=== PATIENT | female | born 1995 ===

== ENCOUNTER 2018-06-22 22:58 | Emergency (ER) | payer OTHER ==
[2018-06-22] MEDS ORDERED: KETOROLAC TROMETHAMINE 30 MG/ML SOL IV ONE (23:18)
[2018-06-22] MEDS ORDERED: KETOROLAC TROMETHAMINE 30 MG/ML SOL ONE (23:37)
[2018-06-22 23:54] LABS: BASOPHILS % (AUTO) 1 % (0-3); EOSINOPHILS % (AUTO) 1 % (0-9); HEMATOCRIT 45 % (35-47); HEMOGLOBIN 14.7 gm/dl (12.0-15.5); LYMPHOCYTES % (AUTO) 20.7 % (10-50); MEAN CORPUSCULAR HGB CONC 32.3 gm/dl (32.0-36.0); MEAN CORPUSCULAR VOLUME 90 fL (81-99); MONOCYTES % (AUTO) 4.6 % (0-12); NEUTROPHILS % (AUTO) 73.1 % (37-80)
[2018-06-22 23:58] LABS: ALKALINE PHOSPHATASE 77 IU/L (46-116); ALT 54 IU/L (14-63); AST 25 IU/L (15-37); BILIRUBIN,TOTAL 0.4 mg/dl (0.2-1.0); BLOOD UREA NITROGEN 10 mg/dl (7-18); CALCIUM 9.2 mg/dl (8.5-10.1); CARBON DIOXIDE 23.5 mEq/L (21-32); CHLORIDE 102 mMol/L (98-107); CREATININE 0.72 mg/dl (0.60-1.00); GLUCOSE 101 mg/dl (74-106); POTASSIUM 3.8 mMol/L (3.5-5.1); SODIUM 138 mMol/L (136-145); TOTAL PROTEIN 8.1 gm/dl (6.4-8.2); TROP I < 0.017 ng/ml (0.000-0.056)
[2018-06-23 01:39] VITALS: BP 132/93; PULSE 60; RESP 16; TEMP 98.8; O2SAT 98
== END 2018-06-23 01:20 | disposition home or self-care (01) ==
LOC: ED 22:58
DX: M79.18 Myalgia, other site (principal)
CPT/HCPCS: 71275; 80053; 84484; 85025; 85378; 93005; 96374; 99284; J1885; Q9967